=== PATIENT | male | born 2000 | race Caucasian/White ===

== ENCOUNTER → 2022-04-01 | Outpatient (CLI) | payer BC | LOC: US 09:30 | DX: R10.11 Right upper quadrant pain (principal); K52.9 Noninfective gastroenteritis and colitis, unspecified | CPT/HCPCS: 76705 ==

== ENCOUNTER → 2022-04-14 | Outpatient (CLI) | payer BC | LOC: NM 08:50 | DX: R10.9 Unspecified abdominal pain (principal); R19.4 Change in bowel habit | CPT/HCPCS: 78227; A9537 ==